=== PATIENT | female | born 1995 | race Caucasian/White ===

== ENCOUNTER 2017-07-22 12:50 | Outpatient (CLI) | payer OTHER, SELFPAY ==
[2017-07-22 13:20] VITALS: BMI 27.3
--- NOTE | 2017-07-22 17:39 | OB.TRI.NOTE ---
History of Present Illness Date of Service: 07/22/17 - seen in office Was patient seen by the physician?: No Reason For Visit: AGATA Date of Service: 07/22/17 Final HUMERA: 07/23/17 Gestational age: 39 Weeks and 6 Days Home Medications Medication Instructions Recorded Vit No.130/Iron/FA 1 each PO DAILY 01/24/17 [ Vitamins] Allergies No Known Allergies Allergy (Verified 01/24/17 06:50) NST - FHR Rate Baby A Baseline: 125 Variability:: Moderate Accelerations:: 15 x 15 Decelerations:: None NST Reactive:: Yes Uterine Activity:: irregular ctxs Impression/Plan A&P: 22yo female with ctxs NST for false labor
== END 2017-07-22 15:10 | disposition home or self-care (01) ==
LOC: WPOUT 13:17 → WP 13:30
PROVIDERS: Family Provider Student in an Organized Health Care Education/Training Program; PCP Student in an Organized Health Care Education/Training Program; Visit Provider Obstetrics & Gynecology
DX: O47.1 False labor at or after 37 completed weeks of gestation (principal); Z3A.39 39 weeks gestation of pregnancy
CPT/HCPCS: 59025; 59050; 99218; G0378

== ENCOUNTER 2017-07-23 02:40 | Inpatient (IN) | payer OTHER, SELFPAY ==
[2017-07-23 02:59] VITALS: BMI 27.1
[2017-07-23] MEDS: Lactated Ringers 1,000 ML 50 ML IV ×5 (03:12→16:40)
[2017-07-23 03:31] LABS: Hematocrit 37.1 % (37-47); Hemoglobin 12.2 g/dl (12.0-15.0); Mean Corp Hgb Conc 32.9 g/gl (32-36); Mean Corpuscular Hgb 27.9 pg (27.0-32.0); Mean Corpuscular Volume 84.7 fL (81-99); Mean Platelet Vol. 11.9 fl (6.2-12.0); Platelet Count 276 K/mm3 (150-450); RBC Distribution Width CV 13.5 % (11.6-14.6); RBC Distribution Width SD 41.1 fl (35.1-43.9); Red Blood Count 4.38 M/mm3 (4.2-5.4); White Blood Count 17.9 K/mm3 (4.4-11.0)
[2017-07-23 03:32] LABS: Scan Indicated on CBC? Y/N NO
[2017-07-23] MEDS: fentaNYL-bupivacaine (epidural) 100 ML BAG EPIDURAL (04:36)
[2017-07-23] MEDS: Ondansetron 4 MG/2 ML Vial IV ×2 (05:12→19:53)
--- NOTE | 2017-07-23 08:07 | PCM.PN.BLA ---
Progress Note Patient comfortable with epidural cvx 7/90/0 AROM clear fluid fhts 125 with mod variability, accels tocos Q2-4 min A&P: expectant management
--- NOTE | 2017-07-23 08:32 | PCM.HP.OB ---
- Problem List (1) Status: Acute Qualifiers: Weeks of gestation: 40 weeks Qualified Code(s): Z3A.40 - 40 weeks gestation of (2) History of anorexia nervosa Status: Acute History Date of Admission: 07/23/17 Final HUMERA: 07/23/17 Final HUMERA Source: LMP Gestational age: 40 Weeks and 0 Days History of this : 22 year old female at 40 weeks by LMP, confirmed by first trimester ultrasound. Presented this am around 0200 with uterine contractions with cervical dilation of 6cm. Denied any LOF, VB, or decreased movement. Admit to L&D. OB HX: Baby with frequent PACs from echo Tobacco use, stopped during first trimester Family history of chromosomal abnormaility-FOB aut born with DiGeorge Syndrome History of Kidney stones, none since 2014 Asthma-childhood and no attacks since 2008. Allergies No Known Allergies Allergy (Verified 01/24/17 06:50) Current Medications Acetaminophen (Tylenol) 325 - 650 mg PO Q4H PRN PRN PRN Reason: PAIN OR FEVER >100.4F Al Hydroxide/Mg Hydroxide (Mylanta Ii) 15 - 30 ml PO Q4H PRN PRN PRN Reason: INDIGESTION Citric Acid/Sodium Citrate (Bicitra) 30 ml PO UD PRN Lactated Ringer's () 1,000 mls @ 50 mls/hr IV .Q20H [facility] Last Admin: 07/23/17 07:23 Dose: 50 mls/hr Penicillin G Potassium/Dextrose (Penicillin G Potassium) 3 mu in 50 mls @ 100 mls/hr IV Q4H [facility] Last Admin: 07/23/17 08:13 Dose: 100 mls/hr Naloxone HCl 4 mg/ Dextrose 504 mls @ 0 mls/hr IV PRN PRN; Protocol PRN Reason: TO MAINTAIN RR>10 Nalbuphine HCl (Nubain) 5 - 10 mg IV Q3H PRN PRN PRN Reason: PAIN (4-10/10) Nalbuphine HCl (Nubain) 5 mg IV Q3H PRN PRN Reason: ITCHING Stop: 07/24/17 04:51 Naloxone HCl (Narcan) 0.2 mg IV Q1M PRN PRN Reason: RR<10 AND PT UNRESPONSIVE Stop: 07/24/17 04:51 Ondansetron HCl (Zofran) 4 mg IV Q8H PRN PRN PRN Reason: NAUSEA Last Admin: 07/23/17 05:12 Dose: 4 mg Promethazine HCl (Phenergan Iv) 6.25 - 12.5 mg IV Q4H PRN PRN; Protocol PRN Reason: IF NAUSEA PERSISTS Sodium Chloride () 5 - 15 ml IV UD DARION Last Admin: 07/23/17 03:39 Dose: Not Given Smoking Status: Former smoker Alcohol: None Drug Use: none Number of Fetus(es): 1 Review of Systems Constitutional: Denies: Chills, Fever, Weight Change Cardiovascular: Denies: Chest Pain, Palpitations Respiratory: Denies: Cough, Shortness of breath at rest, Sputum production Genitourinary: Denies: Dysuria Physical Exam Vitals: Labs: GBS positive RPR negative Rubella Immune HBsAG negative HIV non reactive B positive, antibody screen negative GC/CT negative FHT: 130, moderate variability, accels, no decels, Category 1 TOCO: Every 5-10 minutes, lasting 60-90seconds, palpate moderate General: Alert, Oriented x3, No apparent distress Cardiovascular: Regular rate, Regular Rhythm, No murmurs Lungs: Clear to auscultation, No rhonchi, No wheeze Abdomen: Bowel Sounds Present, Gravid Extremities:: Other - +1 edema BLE Estimated gestational size: Appropriate for gestational size Presentation: Cephalic Cervix Dilation (cm): 7 - Exam by . AROM clear fluid Station: 0 Effacement (%): 90 Assessment/Plan Active and Suspected Problems (Acute) History of anorexia nervosa (Acute) A: 22 year old female at 40 weeks by LMP in active labor Category 1 FHT GBS positive P: 1) Admit to L&D with routine orders 2) Epidural effective for pain management 3) Expectant management at this time 4) collaborative physician. Present on unit and updated on patient status. Yamila Rogers CNM
--- NOTE | 2017-07-23 08:42 | HP.PCM_ITS ---
- Problem List (1) Status: Acute Qualifiers: Weeks of gestation: 40 weeks Qualified Code(s): Z3A.40 - 40 weeks gestation of (2) History of anorexia nervosa Status: Acute History Date of Admission: 07/23/17 Final HUMERA: 07/23/17 Final HUMERA Source: LMP Gestational age: 40 Weeks and 0 Days History of this : 22 year old female at 40 weeks by LMP, confirmed by first trimester ultrasound. Presented this am around 0200 with uterine contractions with cervical dilation of 6cm. Denied any LOF, VB, or decreased movement. Admit to L&D. OB HX: Baby with frequent PACs from echo Tobacco use, stopped during first trimester Family history of chromosomal abnormaility-FOB aut born with DiGeorge Syndrome History of Kidney stones, none since 2014 Asthma-childhood and no attacks since 2008. Allergies No Known Allergies Allergy (Verified 01/24/17 06:50) Current Medications Acetaminophen (Tylenol) 325 - 650 mg PO Q4H PRN PRN PRN Reason: PAIN OR FEVER >100.4F Al Hydroxide/Mg Hydroxide (Mylanta Ii) 15 - 30 ml PO Q4H PRN PRN PRN Reason: INDIGESTION Citric Acid/Sodium Citrate (Bicitra) 30 ml PO UD PRN Lactated Ringer's () 1,000 mls @ 50 mls/hr IV .Q20H [facility] Last Admin: 07/23/17 07:23 Dose: 50 mls/hr Penicillin G Potassium/Dextrose (Penicillin G Potassium) 3 mu in 50 mls @ 100 mls/hr IV Q4H [facility] Last Admin: 07/23/17 08:13 Dose: 100 mls/hr Naloxone HCl 4 mg/ Dextrose 504 mls @ 0 mls/hr IV PRN PRN; Protocol PRN Reason: TO MAINTAIN RR>10 Nalbuphine HCl (Nubain) 5 - 10 mg IV Q3H PRN PRN PRN Reason: PAIN (4-10/10) Nalbuphine HCl (Nubain) 5 mg IV Q3H PRN PRN Reason: ITCHING Stop: 07/24/17 04:51 Naloxone HCl (Narcan) 0.2 mg IV Q1M PRN PRN Reason: RR<10 AND PT UNRESPONSIVE Stop: 07/24/17 04:51 Ondansetron HCl (Zofran) 4 mg IV Q8H PRN PRN PRN Reason: NAUSEA Last Admin: 07/23/17 05:12 Dose: 4 mg Promethazine HCl (Phenergan Iv) 6.25 - 12.5 mg IV Q4H PRN PRN; Protocol PRN Reason: IF NAUSEA PERSISTS Sodium Chloride () 5 - 15 ml IV UD DARION Last Admin: 07/23/17 03:39 Dose: Not Given Smoking Status: Former smoker Alcohol: None Drug Use: none Number of Fetus(es): 1 Review of Systems Constitutional: Denies: Chills, Fever, Weight Change Cardiovascular: Denies: Chest Pain, Palpitations Respiratory: Denies: Cough, Shortness of breath at rest, Sputum production Genitourinary: Denies: Dysuria Physical Exam Vitals: Labs: GBS positive RPR negative Rubella Immune HBsAG negative HIV non reactive B positive, antibody screen negative GC/CT negative FHT: 130, moderate variability, accels, no decels, Category 1 TOCO: Every 5-10 minutes, lasting 60-90seconds, palpate moderate General: Alert, Oriented x3, No apparent distress Cardiovascular: Regular rate, Regular Rhythm, No murmurs Lungs: Clear to auscultation, No rhonchi, No wheeze Abdomen: Bowel Sounds Present, Gravid Extremities:: Other - +1 edema BLE Estimated gestational size: Appropriate for gestational size Presentation: Cephalic Cervix Dilation (cm): 7 - Exam by . AROM clear fluid Station: 0 Effacement (%): 90 Assessment/Plan Active and Suspected Problems (Acute) History of anorexia nervosa (Acute) A: 22 year old female at 40 weeks by LMP in active labor Category 1 FHT GBS positive P: 1) Admit to L&D with routine orders 2) Epidural effective for pain management 3) Expectant management at this time 4) collaborative physician. Present on unit and updated on patient status. Yamila Rogers CNM
[2017-07-23] MEDS: Oxytocin 30 units/NS 500 ml 30 UNITS/500 ML IV.SOLN IV (16:00)
[2017-07-23] MEDS: Acetaminophen 325 MG Tablet 975 MG PO (17:50)
--- NOTE | 2017-07-23 18:08 | PCM.PROGNOTE ---
Patient Problems: Active and Suspected Problems (Acute) History of anorexia nervosa (Acute) Subjective: Pushing since 2:40pm with minimal decent. Epidural effective for pain management. Partner at bedside. Objective: Temp 101 FHT 155, moderate variability, accels, variable decels TOCO: every 2-3 minutes, lasting 60 seconds, strong to plapation Minimal decent per nursing. Upon initial exam baby -2 with caput and minimal decent with pushing. During pushing moving baby and progressed to -1 station and moving head with pushing. Epidural level turned down. - Physical Exam Weight: 163 lb 2.273 oz Body Mass Index (BMI) 27.1 Intake and Output for Last 24 Hours 07/21/17 07/22/17 07/23/17 23:59 23:59 23:59 Intake Total 1820 / 1820 Output Total 400 / 400 Balance 1420 / 1420 Laboratory Tests Past 24 Hrs 07/23/17 07/23/17 03:12 03:12 WBC 17.9 H RBC 4.38 Hgb 12.2 Hct 37.1 MCV 84.7 MCH 27.9 MCHC 32.9 RDW 13.5 RDW Differential 41.1 Plt Count 276 MPV 11.9 Blood Type B POSITIVE Antibody Screen NEGATIVE Medical Necessity - Tobacco Use Smoking Status: Former smoker Assessment/Plan Active and Suspected Problems (Acute) History of anorexia nervosa (Acute) A: Active Labor GBS positive Maternal fever P: 1) Maternal fever of 101. Tylenol PO 2) Discussed patient minimal decent but not making progress with decent. Ok to continue pushing at this time. Pushing since 2:40 3hrs. 3) Consider maternal antibiotics but baseline normal at this time.
--- NOTE | 2017-07-23 18:54 | PCM.PROGNOTE ---
Patient Problems: Active and Suspected Problems (Acute) History of anorexia nervosa (Acute) Subjective: Pushing with epidural. Objective: FHT 200, moderate varibility, accels, Categry 2 TOCO: every 2-3 min lasting 60-90 seconds Pitocin at 2mu's Cervix: complete and 0 station. - Physical Exam Weight: 163 lb 2.273 oz Body Mass Index (BMI) 27.1 Intake and Output for Last 24 Hours 07/21/17 07/22/17 07/23/17 23:59 23:59 23:59 Intake Total 1820 / 1820 Output Total 400 / 400 Balance 1420 / 1420 Laboratory Tests Past 24 Hrs 07/23/17 07/23/17 03:12 03:12 WBC 17.9 H RBC 4.38 Hgb 12.2 Hct 37.1 MCV 84.7 MCH 27.9 MCHC 32.9 RDW 13.5 RDW Differential 41.1 Plt Count 276 MPV 11.9 Blood Type B POSITIVE Antibody Screen NEGATIVE Medical Necessity - Tobacco Use Smoking Status: Former smoker Assessment/Plan Active and Suspected Problems (Acute) History of anorexia nervosa (Acute) A: Active labor, second stage Category 2 FHT, tachycardia P: 1) notified of tachycardia in 200s, decreased pushing effort, with some descent. Consulted to come in for evaluation.
--- NOTE | 2017-07-23 19:15 | PLAC_PTH ---
PATIENT: CHAIM SEAY LOC: [facility] U#:[id number] AGE/SX: 22/F ROOM: WP008 RE07/23/[address]: Dr. Matilda Jonas, MDDOB: 1995 BED: 1 DIS: 07/25/2017 SPEC #: [id number] RECD: 07/23/17 20:13 STATUS: ELIF DEJA #: [id number] ADAM: 07/23/17 19:[address]: Matilda Jonas DEPT: SURGICAL PATHOLOGY RECD BY: Toney Oh ENTERED: 07/26/17 07:34 SP TYPE: PLACENTA OTHR DR: DO Dr. Amador Leone MD Tissues: Placenta, NOS Procedures: Surgery Specimen Level V HEADER OPERATION: Vaginal delivery PRE-OP DIAGNOSIS: Chorioamnionitis TISSUE SUBMITTED: Placenta MICROSCOPIC DIAGNOSIS Placenta: Placental disc - third trimester placenta (657 gm). - Focal areas of infarction and intraparenchymal hemorrhage. - Focal increased intervillous and perivillous fibrin deposition Membranes ? acute chorioamnionitis. Umbilical cord - three blood vessels and mild acute funisitis. SJ:jamilah 07/27/17 MICROSCOPIC DESCRIPTION Slides are reviewed. GROSS DESCRIPTION SPECIMEN: PLACENTA / CLINICAL INFORMATION: A. Weight: 3.693 kg B. Gestational Age: 40 weeks C. Sex: Female PLACENTAL WEIGHT (POST FIXATION): 657 gm PLACENTAL DIMENSIONS: 20 x 19 x 3.5 cm PLACENTAL SHAPE: Usual ovoid PLACENTAL WEIGHT FOR GESTATIONAL AGE: Over 99th percentile MEMBRANES - Present A. Insertion: Marginal B. Site of rupture from edge: 6 cm from edge of placental disc C. Color of membrane: Rivera-burns D. Abnormalities: None UMBILICAL CORD - Present A. Color: Rivera-burns B. Insertion: Paracentral C. Length: 20 cm D. Diameter: 1.8 to 2 cm E. Number of vessels: Three F. Abnormalities: None PLACENTAL DISC - Present A. Color of surface: Rivera-burns B. surface abnormalities: None C. Maternal cotyledons: Intact with minimal tears D. Attached retro placental clot: No clot E. Cut surface: Dark red and spongy F. Lesions: Sections reveal two rivera, indurated areas each measuring 2 cm in greatest dimension. G. Separate clot: Absent SECTIONS SUBMITTED: 1. Membrane roll 2. Cord, maternal end 3. Cord, end 4. Placental disc, and maternal surfaces, lesion 5. Placental disc, and maternal surfaces, lesion 6. Placental disc, and maternal surfaces ANNETTA:jamilah 07/26/17 TC:2 CPT: 86309
[2017-07-23] MEDS: Oxytocin 30 units/NS 500 ml 30 UNITS/500 ML IV.SOLN 334 UNITS IV (19:20)
[2017-07-23] MEDS: Methylergonovine 0.2 MG/ML Ampul IM (19:23)
[2017-07-23] MEDS: Carboprost Tromethamine 250 MCG/ML Ampul IM (19:37)
--- NOTE | 2017-07-23 19:44 | PCM.OB.VAG ---
Vaginal Delivery Maternal Presentation: Active Labor Method of Induction: Pitocin, Amniotomy Amniotic Membrane Rupture Type: Artificial Rupture of Membrane time: 804 Amniotic Fluid Description: Clear Final HUMERA: 07/23/17 Gestational age: 40 Weeks and 0 Days Date of Procedure: 07/23/17 Pre-Operative Diagnosis: term gestation Post-Operative Diagnosis: chorioamnionitis Surgery/ Procedure Performed: Vacuum Assisted Vaginal Delivery Type of Anesthesia: Epidural, Local with 1% lidocaine Description of Procedure: called for evaluation for possible C/S for tachycardia, Chorioamnionitis prolonged second stage. patient evaluated and decision for attempt of vaginal delivery with vacuum assistance. pt and counseled on risks of vacuum assistance for delivery. bladder emptied, vacuum placed and total 3 pulls with 2 pop offs. head delivered, vacuum removed and with good maternal efforts patient delivered fetus. Cord clamped and cut, handed to nursery team. steady bleeding noted. vagina evaulated- no cervical lacerations only 2nd vaginal and 1st vaginal laceration appreciated. Banjo curettage performed, scant tissue removed. Ultrasound confirms absence of retained placenta. During this time Methergine and Hemabate were given. Fundus firm. bleeding slowed. Presentation: Vertex Placental Delivery Description: Spontaneous Placenta Disposition: Sent to Pathology Cord Vessel Description: 3 Vessels Cord Entanglement: None Estimated Blood Loss: 500 Infant A gender: Female (1 minute): 8 (5 minute): 9 Episiotomy Description: None Laceration: Vaginal Extension/lac - 1st degree repaired with 3-0 rapide and second degree repaired with 2-0 vicryl, 1st degree, 2nd degree Medications given after delivery: IV Pitocin, IM Methergin, IM Hemabate
[2017-07-23] MEDS: Oxytocin 30 units/NS 500 ml 30 UNITS/500 ML IV.SOLN 167 UNITS IV (19:50)
--- NOTE | 2017-07-23 20:55 | PCM.PROGNOTE ---
Patient Problems: Active and Suspected Problems (Acute) History of anorexia nervosa (Acute) Subjective: Notified by TAMMY Mcmahon that patient was having difficulty breathing and feeling sluggish. Patient with complaint of feeling some heaviness in chest - Physical Exam General: Alert, Oriented x3, Cooperative HEENT: Atraumatic, PERRLA, EOMI Oral: Moist Mucosa - No tongue swelling Lungs: Clear to auscultation, Normal air movement, No rhonchi, No wheeze Cardiovascular: Regular rate, Regular Rhythm, No murmurs Psych/Mental Status: Flat Affect - Patient with flat affect on admission. Remains the same at this time. Weight: 163 lb 2.273 oz Body Mass Index (BMI) 27.1 Intake and Output for Last 24 Hours 07/21/17 07/22/17 07/23/17 23:59 23:59 23:59 Intake Total 1820 / 1820 Output Total 400 / 400 Balance 1420 / 1420 Laboratory Tests Past 24 Hrs 07/23/17 07/23/17 03:12 03:12 WBC 17.9 H RBC 4.38 Hgb 12.2 Hct 37.1 MCV 84.7 MCH 27.9 MCHC 32.9 RDW 13.5 RDW Differential 41.1 Plt Count 276 MPV 11.9 Blood Type B POSITIVE Antibody Screen NEGATIVE Medical Necessity - Tobacco Use Smoking Status: Former smoker Assessment/Plan Active and Suspected Problems (Acute) History of anorexia nervosa (Acute) A:Status post vaginal delivery with vacuum extraction chest pain P: 1) Consulted regarding patient feeling tongue swelling and chest tightness. VSS, good air movement, RRR, and no other signs of complications. Stable at this time. Order EKG and 25mg IV Benadryl x1.
--- NOTE | 2017-07-23 20:57 | EKG12_ITS ---
Test Reason : CP Blood Pressure : / mmHG Vent. Rate : 077 BPM Atrial Rate : 077 BPM P-R Int : 136 ms QRS Dur : 084 ms QT Int : 386 ms P-R-T Axes : 066 044 022 degrees QTc Int : 436 ms Normal sinus rhythm Normal ECG No previous ECGs available Confirmed by OMER JOHNS, JAKOB ([id number]), senior technical editor EVERETT MCHUGH ([id number] on 07/27/2017 1:37:42 PM Referred By: Confirmed By:JAKOB TELLO MD
[2017-07-23] MEDS: DiphenhydrAMINE 50 MG/ML Syringe 25 MG IV (21:43)
[2017-07-23] MEDS: 0.9% Saline Lock 10 ML Syringe IV (21:49)
[2017-07-24] VITALS (8 sets, daily range): BP systolic 102–122; BP diastolic 55–72; PULSE 68–100; RESP 16–18; TEMP 36.5–38.2; O2SAT 95–98
[2017-07-24] MEDS: Acetaminophen 500 MG Tablet 1000 MG PO (05:05)
--- NOTE | 2017-07-24 08:03 | PCM.PN.OB ---
Patient Problems: Active and Suspected Problems (Acute) History of anorexia nervosa (Acute) Subjective: pt seen at bedside, doing well. pt reports good pain control. denies chills at this time. Bottle feeding. Lochia mild. - Physical Exam General: Alert, Oriented x3 Abdomen: Soft, Non Tender, Non-Distended, - - fundus firm Extremities: No Calf Tenderness Vital Signs Temp Pulse Resp BP Pulse Ox 98.1 F 100 16 122/72 H 98 07/24/17 06:52 07/24/17 04:15 07/24/17 04:15 07/24/17 04:15 07/24/17 04:15 Oxygen Delivery Method Room Air Weight: 74 kg Body Mass Index (BMI) 27.1 Intake and Output for Last 24 Hours 07/22/17 07/23/17 07/24/17 23:59 23:59 23:59 Intake Total 5905 / 5905 Output Total 1200 / 1200 Balance 4705 / 4705 Medical Necessity - Tobacco Use Smoking Status: Former smoker Assessment/Plan Active and Suspected Problems (Acute) History of anorexia nervosa (Acute) PPD#1, doing well 1) had temps overnight- now is afebrile- will monitor and if spikes will order blood cultures and start abx 2) CBC with diff today 3) pain mgmt
--- NOTE | 2017-07-24 08:07 | DCINST_ITS ---
Discharge Diet: No Restrictions Discharge Activity: Return to Normal Activity, May not drive while taking narcotic pain medications., May Shower May resume sexual activity in: 4-6 weeks Additional Activity Instructions:: Nothing in the vagina for 4-6 weeks. You may return to work/school in 6 weeks. Call your doctor if your incision/area has: Continuous Slow Oozing, Sudden Increased Bleeding, Increased Pain/ Swelling, Increased Redness, Foul Smelling Discharge Additional Instructions: If you experience any of the following, contact your healthcare provider. * Bleeding that soaks a pad every hour for 2 hours * Fever 100.4 or higher * Unrelieved incision or abdominal pain * Swelling, redness, discharge or bleeding from your incision or episiotomy site * Your incision begins to separate * Problems urinating (including inability to urinate or burning while urinating) . * Visual changes * Severe headache * Flu-like symptoms * Pain or redness in one of both of your breasts * Pain, warmth, tenderness or swelling in your legs, especially the calf area * Frequent nausea and vomiting * Symptoms of depression or anxiety If you experience any of the following, call 911 or go to the nearest Emergency Room. * Chest pain * Problems breathing * Seizure activity * Partial or complete paralysis of a body part, slurred speech, weakness or drooping of the face, or a sudden inability to walk or hold your balance Allergies/Adverse Reactions: Allergies No Known Allergies Allergy (Verified 01/24/17 06:50) Medications to take at Discharge Vit No.130/Iron/FA [ Tablet] 1 each PO DAILY 01/24/17 Naproxen [Naprosyn] 250 - 500 mg PO Q8H PRN PRN #60 tab 07/24/17 The following prescriptions were given: Naproxen [Naprosyn] 250 - 500 mg PO Q8H PRN PRN #60 tab PRN Reason: Mild Pain (-07/03) When: Call to make an appointment with your doctor in 6 weeks. If you had elevated Blood Pressure or 4th degree laceration you will need to be seen in 2 weeks. Primary Care Physician: Sudeep Champagne DO [Primary Care Provider] -
[2017-07-24] MEDS: Naproxen 250 MG Tablet PO ×2 (09:11→21:28)
[2017-07-24 09:19] LABS: Absolute Lymphocyte Count 2.66 X10^3/ul (0.83-4.51); Absolute Neutrophil Count 21.3 X10^3/uL (2.0-7.7); Basophil# 0.04 X10^3/uL; Basophil% 0.2 % (0-1); Eosinophil# 0.07 X10^3/uL; Eosinophils% 0.3 % (0-5); Hematocrit 32.6 % (37-47); Hemoglobin 10.7 g/dl (12.0-15.0); Lymphocyte # 2.66 X10^3/ul (4.0); Lymphocyte % 10.1 % (19-41); Mean Corp Hgb Conc 32.8 g/gl (32-36); Mean Corpuscular Hgb 28.1 pg (27.0-32.0); Mean Corpuscular Volume 85.6 fL (81-99); Mean Platelet Vol. 11.9 fl (6.2-12.0); Monocyte# 2.05 X10^3/uL; Monocyte% 7.8 % (0-10); Neutrophil # 21.27 X10^3/uL (2.7-7.7); Neutrophil % 81.1 % (47-70); Platelet Count 235 K/mm3 (150-450); RBC Distribution Width CV 13.7 % (11.6-14.6); RBC Distribution Width SD 41.3 fl (35.1-43.9); Red Blood Count 3.81 M/mm3 (4.2-5.4); White Blood Count 26.2 K/mm3 (4.4-11.0)
[2017-07-24 09:20] LABS: Differential Indicated SCAN CRITERIA MET; POSITIVE COUNT NO; POSITIVE DIFFERENTIAL YES; POSITIVE MORPHOLOGY NO
[2017-07-24 09:42] LABS: Differential Comment SCANNED
[2017-07-25 03:30] VITALS: BP 95/60; PULSE 70; RESP 16; TEMP 36.6; O2SAT 96
--- NOTE | 2017-07-25 07:02 | PCM.PN.OB ---
Patient Problems: Active and Suspected Problems (Acute) History of anorexia nervosa (Acute) Subjective: pt seen at bedside, doing well. pt reports good pain control. Lochia mild. No chills or fevers. bottle feeding. - Physical Exam General: Alert, Oriented x3 Abdomen: Soft, Non Tender, Non-Distended, - - fundus firm Extremities: No Calf Tenderness Vital Signs Temp Pulse Resp BP Pulse Ox 97.8 F 70 16 95/60 96 07/25/17 03:30 07/25/17 03:30 07/25/17 03:30 07/25/17 03:30 07/25/17 03:30 Oxygen Delivery Method Room Air Weight: 74 kg Body Mass Index (BMI) 27.1 Intake and Output for Last 24 Hours 07/23/17 07/24/17 07/25/17 23:59 23:59 23:59 Intake Total 5905 / 5905 Output Total 1200 / 1200 Balance 4705 / 4705 Laboratory Tests Past 24 Hrs 07/24/17 08:55 WBC 26.2 H RBC 3.81 L Hgb 10.7 L Hct 32.6 L MCV 85.6 MCH 28.1 MCHC 32.8 RDW 13.7 RDW Differential 41.3 Plt Count 235 MPV 11.9 Immature Gran % (Auto) 0.500 Neut % (Auto) 81.1 H Lymph % (Auto) 10.1 L [place] % (Auto) 7.8 Eos % (Auto) 0.3 Baso % (Auto) 0.2 Absolute Neuts (auto) 21.3 H Absolute Lymphs (auto) 2.66 Total Counted Not Reportable Differential Comment SCANNED Medical Necessity - Tobacco Use Smoking Status: Former smoker Assessment/Plan Active and Suspected Problems (Acute) History of anorexia nervosa (Acute)
[2017-07-25 07:55] VITALS: BP 104/59; PULSE 66; RESP 18; TEMP 36.3; O2SAT 97
[2017-07-25 12:47] LABS: Pathology Specimen OB SEE PATHOLOGY REPORT
[2017-07-25 14:45] VITALS: BP 116/60; PULSE 73; RESP 18; TEMP 36.7; O2SAT 98
--- NOTE | 2017-07-26 14:55 | CASEMGMT ---
Social Work - PHQ9 follow up Labor and Delivery Unit Received notice that patient with a positive PHQ9 score of 7, indicating not at all to thoughts of being better off or thoughts of hurting self in the last two weeks. Patient was discharged on Wednesday07-25-17 before able to be seen by social work or behavioral health departments. Chart reviewed. Noted in the medical record that patient is G2, P0 to 1 after delivering Yeison Villatoro. Uncertain was to gestational age of first loss, whether this was a first or second trimester loss, as social services aide saw a 9 week loss and an 18 week loss documented in patient's record. Noted in record that patient with history of diagnosis of anorexia. Noted that father of baby was present during hospital stay and supportive. Attempted to reach patient this date at [phone]. Voice mail received so left a message to call this bond underwriter back, leaving this bond underwriter's name and number. Plan: Review resources for first time parents, current support system, patient's reported depressive symptoms, and mental health support options. -ANGELA Robins, RADIOLOGY PRACTITIONER ASSISTANT
--- NOTE | 2017-07-27 15:47 | CASEMGMT ---
Social Work Labor and Delivery Unit Patient/mother of baby (MOB) did return this senior grant writer's call from 07-26-17 and left this senior grant writer a message. Called MOB today. MOB answered the phone. Educated MOB to reason for call and role. MOB agreeable to talk with social work at this time. MOB reports to feel a france with the baby. MOB reports some of the depressive symptoms have been better, not as intense. Upon addressing the PHQ9, MOB reports depressive symptoms were more of MOB feeling emotionless not having as much of a reaction to things as MOB thought should be having. Such as when MOB returned home and saw MOB's 4 dogs, MOB did not experience, in MOB's perception, intense reactions to seeing the dogs after being in the hospital for a few days. MOB reports to now be having more emotion since returning home. MOB reports motivation has been up and down, but was able to get some sleep yesterday so feeling better today. MOB reports appetite is on MOB's mind, but trying to be mindful of this. MOB reports MOB's mom helped MOB get through eating disorder in the past, so knows has access to the same support at this time as well. After social work inquiry as to whether baby born this admission was MOB's first child, MOB shared that did have a previous loss at 18 weeks. When social work assistant commented that this was a second trimester loss, MOB reported the loss was between 12-18 weeks. Educated MOB there is a local grief support group for parents with loss, should MOB ever be interested in support for this part of MOB's life. MOB reports MOB's mother, MOB's fiance/father of baby Avinash Villatoro, and another good friend are supportive and helpful to MOB. MOB denies any thoughts of suicide or self harm. MOB reports does feel a france with the baby and was able to get out yesterday and take baby to the doctors. MOB denies need or desire to have a mental health referral at this time, but reports that symptoms intensify would consider seeking out professional help. MOB voiced agreement to have social work assistant send information in the mail on mental health treatment options. During conversation MOB voiced that does have questions about finances, that copays are quite expensive and worried as to how to pay for bills. Educated MOB to Medicaid, applying for this to see if can supplement cost of medical bills. Suggested MOB call the numbers listed on the bills received,and to talk to respective financial departments to see if there are applications to apply for extra help, and if not then set up payment plans. MOB voiced agreement to look into options. Discussed WIC, to which MOB voiced interest in applying for. sheet metal worker apprentice agreed to send MOB some information in the mail which may be helpful. MOB agreed. Educated MOB to Help Me Grow. MOB stated verbal consent for referral. Verified MOB's address to send packet of information. Interventions: Help Me Grow referral submitted via the [facility]'s secure web based referral system Packet placed in mail, which included: Medicaid application, WIC applications, General resource list for [facility], Handouts on topics/programs pertinent to new parents, depression packet, including online supports, Local mental health support programs Plan: MOB is at home, reports to be doing well overall and expressed receptivity to having social work send pertinent information to women. [facility] referral in place. -ANGELA Robins, PRICING LEAD
== END 2017-07-25 15:30 | disposition home or self-care (01) | DRG 767 ==
PROVIDERS: Advanced Practice Midwife; Admitting Provider Obstetrics & Gynecology; Family Provider Student in an Organized Health Care Education/Training Program; PCP Student in an Organized Health Care Education/Training Program; Visit Provider Obstetrics & Gynecology
DX: O76 Abnormality in fetal heart rate and rhythm complicating labor and delivery (principal); O41.1230 Chorioamnionitis, third trimester, not applicable or unspecified; O72.2 Delayed and secondary postpartum hemorrhage; O63.1 Prolonged second stage (of labor); O75.2 Pyrexia during labor, not elsewhere classified; O70.1 Second degree perineal laceration during delivery; O99.824 Streptococcus B carrier state complicating childbirth; O99.331 Smoking (tobacco) complicating pregnancy, first trimester; O99.89 Other specified diseases and conditions complicating pregnancy, childbirth and the puerperium; R07.89 Other chest pain; R22.0 Localized swelling, mass and lump, head; Z37.0 Single live birth; Z3A.40 40 weeks gestation of pregnancy; Z86.59 Personal history of other mental and behavioral disorders
CPT/HCPCS: 59025; 59050; 76815; 85025; 85027; 86850; 86900; 88307; 93005; 99218; J7120; A4216; G0378; J2405

== ENCOUNTER 2019-03-26 21:31 | Emergency (ER) | payer OTHER, SELFPAY ==
[2019-03-26 21:31] VITALS: BP 110/65; PULSE 90; RESP 14; TEMP 36.7; O2SAT 98; BMI 26.9
--- NOTE | 2019-03-26 22:12 | ED.DCSUM_ITS ---
- ER Visit Summary Date of Service: 03/26/19 Chief Complaint: [Right ear pain] History of Present Illness: The patient is a 23 F [presents to the emergency department complaint of right ear pain that started about a month ago. Patient's had several visits to walk-in clinics for this and has been on amoxici llin as well as Claritin. Patient complains of ringing in the ear and dizziness with turning her head and trying to stand and walk. Patient also is 9 weeks and she is G3, P1. Patient denies any trauma to her ear. Denies any fevers. Patient has no medical history otherwise. Physical Examination: [HEENT-PERRLA, EOMI. Cranial nerves II through XII grossly intact. Left TM clear. Right TM-the tympanic membrane appears to be extremely retracted and there is evidence of erythema and dried blood on the tympanic membrane. Difficult to visualize the bones of the middle ear.. Patient has no pain with traction on pinna. She has no tenderness over the mastoid.. Mucous membranes moist. No adenopathy. Is nonerythematous. No exudates. Cardiovascular-regular rate and rhythm without murmur or ectopy Lungs-clear to auscultation, chest wall stable without crepitus or subcu emphysema Abdomen-normoactive bowel sounds, soft, nontender, no rebound or rigidity, no peritoneal signs. Extremities-intact ?4, normal range of motion, normal pulses, atraumatic] Test Results: [None indicated] Emergency Department Course and Treatment: [She will be started on Zithromax and Antivert. Patient will require evaluation by ENT.] Treatment Plan: [To follow-up with ENT and I will start her on Zithromax and Antivert.] Disposition: [Discharged home in stable condition] Impression: [Right otitis media with suspected eardrum perforation Decreased hearing right ear] This note was generated with [employer] dictation software. It may contain incorrect words, spelling, and punctuation that were not noted in review of the chart prior to signing ED Disposition - Plan for ED Patient: Referrals: Sudeep Champagne DO [Primary Care Provider] -
--- NOTE | 2019-03-26 22:16 | ED.DEP ---
ED Disposition - Plan for ED Patient: Instructions: RUPTURED TM, Infected (Adult) Prescriptions: Meclizine HCl [Antivert] 25 mg PO 4X/DAY PRN PRN #20 tab PRN Reason: Dizziness Prescription Printed Azithromycin [Zithromax] 250 mg PO DAILY #4 tab Prescription Printed Referrals: Sudeep Champagne DO [Primary Care Provider] - Benedict Avilez MD [STAFF PHYSICIAN] - 1-2 Days if not improving
[2019-03-26] MEDS: Azithromycin 250 MG Tablet 500 MG PO (22:23)
[2019-03-26 22:26] VITALS: BP 112/69; PULSE 81; RESP 18; O2SAT 100
--- NOTE | 2019-03-26 22:26 | ED.RN ---
THIS NURSE REVIEWED D/C INSTRUCTIONS WITH PT. PT VERBALIZED UNDERSTANDING OF INSTRUCTIONS. PT DENIES FURTHER NEEDS OR QUESTIONS AT THIS TIME. PT WAITING IN THE ROOM FOR MEDS TO BEDS
== END 2019-03-26 22:27 | disposition home or self-care (01) ==
LOC: ED 22:11
PROVIDERS: Emergency Provider Emergency Medicine; Family Provider Student in an Organized Health Care Education/Training Program; PCP Student in an Organized Health Care Education/Training Program
DX: O99.89 Other specified diseases and conditions complicating pregnancy, childbirth and the puerperium (principal); H66.91 Otitis media, unspecified, right ear; Z3A.09 9 weeks gestation of pregnancy; H91.91 Unspecified hearing loss, right ear
CPT/HCPCS: 99283

== ENCOUNTER 2019-10-27 04:35 | Inpatient (IN) | payer OTHER, SELFPAY ==
[2019-10-27] VITALS (46 sets, daily range): BP systolic 97–134; BP diastolic 51–77; PULSE 66–104; RESP 16–18; TEMP 36.3–37.1; O2SAT 90–100; BMI 29.0
--- NOTE | 2019-10-27 04:17 | HP.PCM_ITS ---
- Problem List (1) 39 weeks gestation of Status: Acute (2) Multiparous Status: Acute (3) Uterine contractions Status: Acute (4) Status: Acute Qualifiers: (5) History of anorexia nervosa Status: Acute History Date of Admission: 07/23/17 Final HUMERA: 11/01/19 Final HUMERA Source: LMP Gestational age: 39 Weeks and 2 Days History of this : This is a 24 year-old, G 3, P 1011, at 39 weeks gestational age who presents with ctx's. No vb, lof. Good FM. Allergies No Known Allergies Allergy (Verified 10/27/19 03:41) Home Medications: Home Medications Vit No.130/Iron/Folic [ Tablet] 1 each PO DAILY 01/24/17 Smoking Status: Never smoker Number of Fetus(es): 1 NST - FHR Rate Baby A FHR Category:: Category I History Past Pregnancies: Past Pregnancies Delivery Date Name GA/ Weeks Outcome Route Wt Infant Sex Labor Length Anesthesia Delivery Location Provider FOB Labs: See [facility] record Expected Delivery Method: Spontaneous Vaginal Review of Systems Gynecological: Denies: Vaginal bleeding Physical Exam Vitals: Vital Signs Temp Pulse BP 98.1 F 87 134/74 H 10/27/19 03:30 10/27/19 02:16 10/27/19 02:16 General: Alert, No apparent distress HEENT: Atraumatic Abdomen: Soft, Non Tender, Gravid Extremities:: No edema Neurological: Neuro grossly intact GEOGRAPHIC INFORMATION SYSTEMS MANAGER: Normal external genitalia Estimated gestational size: Appropriate for gestational size Presentation: Cephalic Cervix Dilation (cm): 4 Assessment/Plan All Active Problems (Acute) History of anorexia nervosa (Acute) 39 weeks gestation of (Acute) Multiparous (Acute) Uterine contractions (Acute) This is a 24 year-old, G 3, P 1011, at 39 weeks gestational age who presents with contractions. - Admit for labor management - Routine intrapartum care - GBS neg - Pt very anxious regarding delivery process and desires epidural. Will AROM after epidural - Pt was pushing for over 4 hrs with first baby, vacuum assisted delivery, ch orio, and uterine atony - EFW estimated to be <4500g and pelvis adequate. Anticipate vaginal delivery
[2019-10-27] MEDS: Lactated Ringers 1,000 ML 50 ML IV (04:50)
[2019-10-27] MEDS: Lactated Ringers 500 ML 999 ML IV ×2 (04:51→09:48)
[2019-10-27 05:13] LABS: Absolute Lymphocyte Count 2.39 X10^3/uL (0.83-4.51); Absolute Neutrophil Count 10.2 X10^3/uL (2.0-7.7); Basophil# 0.05 X10^3/uL; Basophil% 0.4 % (0-1); Eosinophil# 0.05 X10^3/uL; Eosinophils% 0.4 % (0-5); Hematocrit 34.9 % (37-47); Hemoglobin 10.7 g/dL (12.0-15.0); Lymphocyte # 2.39 X10^3/ul (4.0); Lymphocyte % 17.2 % (19-41); Mean Corp Hgb Conc 30.7 g/dL (32-36); Mean Corpuscular Hgb 26.9 pg (27.0-32.0); Mean Corpuscular Volume 87.7 fL (81-99); Mean Platelet Vol. 12.2 fl (6.2-12.0); Monocyte# 1.06 X10^3/uL; Monocyte% 7.6 % (0-10); NRBC Flagged by Analyzer 0 % (0-5); Neutrophil # 10.16 X10^3/uL (2.7-7.7); Neutrophil % 73.2 % (47-70); Platelet Count 227 K/mm3 (150-450); RBC Distribution Width CV 14.1 % (11.6-14.6); RBC Distribution Width SD 44.5 fl (35.1-43.9); Red Blood Count 3.98 M/mm3 (4.2-5.4); White Blood Count 13.9 K/mm3 (4.4-11.0)
[2019-10-27] MEDS: fentaNYL-bupivacaine (epidural) 100 ML BAG EPIDURAL (06:00)
[2019-10-27] MEDS: Oxytocin 30 units/NS 500 ml 30 UNITS/500 ML IV.SOLN IV (08:30)
--- NOTE | 2019-10-27 09:19 | PCM.PN.BLA ---
Progress Note patient seen at bedside, resting comforably with epidural in place. VE: /-1 AROM clear. continue pitocin. Intermittent variables, REactive with moderate variability. STROKE Vital Signs/Narrative: Vital Signs Temp Pulse BP Pulse Ox 10/27/19 09:01 92 101/51 L 10/27/19 09:00 98.4 F 99 10/27/19 08:11 98.3 F 86 118/59 L 99 10/27/19 07:15 85 119/60 10/27/19 07:13 98.4 F 10/27/19 06:38 82 107/58 L 10/27/19 06:37 98 10/27/19 06:33 75 114/56 L 10/27/19 06:32 98 10/27/19 06:29 86 124/53 H 10/27/19 06:27 80 99 10/27/19 06:24 82 116/61 10/27/19 06:22 87 99 10/27/19 06:19 92 122/58 H 10/27/19 06:17 92 99 10/27/19 06:15 93 131/62 H 10/27/19 06:12 87 99 10/27/19 06:09 80 116/57 L 10/27/19 06:03 96 101/53 L 99 10/27/19 05:58 87 97/56 L 98 10/27/19 05:53 88 113/62 99 10/27/19 05:48 101 H 118/77 99 10/27/19 05:46 98.5 F 10/27/19 05:43 104 H 100
[2019-10-27] MEDS: Oxytocin 30 units/NS 500 ml 30 UNITS/500 ML IV.SOLN 334 UNITS IV (11:01)
--- NOTE | 2019-10-27 11:15 | OP.PCM_ITS ---
Vaginal Delivery Maternal Presentation: Active Labor Amniotic Membrane Rupture Type: Artificial Amniotic Fluid Description: Clear Final HUMERA: 11/01/19 Gestational age: 39 Weeks and 2 Days Date of Procedure: 10/27/19 Pre-Operative Diagnosis: term gestation, Active labor Post-Operative Diagnosis: same, live male infant Surgery/ Procedure Performed: Spontaneous Vaginal Delivery Type of Anesthesia: Epidural Description of Procedure: Delivery of the head. Loose nuchal appreciated. Nuchal cord was reduced prior to delivery. Gentle downward traction and good maternal efforts delivered a vigorous male . Infant was placed on the mother's chest. Delayed cord clamping was performed. Second-degree perineal laceration was repaired using 2- 0 Vicryl and a 3-0 repeat. Placenta delivered without complication and intact. Presentation: Vertex Placental Delivery Description: Spontaneous Placenta Disposition: [facility] Cord Vessel Description: 3 Vessels Nuchal Cord Compression: With compression Cord Entanglement: Around neck x 1, loose Drain: Elder to straight drain Estimated Blood Loss: 200 Infant A gender: Male (1 minute): 8 (5 minute): 9 Episiotomy Description: None Laceration: Perineal Extension/lac, 2nd degree Medications given after delivery: IV Pitocin Complications: None
[2019-10-27] MEDS: Ibuprofen 600 MG Tablet PO ×2 (13:18→23:59)
[2019-10-27] MEDS: 0.9% Saline Lock 10 ML Syringe IV (14:05)
--- NOTE | 2019-10-27 16:30 | CASEMGMT ---
Social Work Brief Assessment - Labor and Delivery Unit Refer documentation below for further details. Date of Referral/Notification: 10/27/2019 Time of Referral: 16:00 Referred By: Nursing Reason for Referral: Triggered by PHQ9 score of 17 Date of Intervention: 10/27/2019 Time of Intervention: 16:30 Informant: Medical record and mother of baby (MOB) Assessment: Met with MOB in room. Introduced role and reason for referral. MOB triggered for consult by social work due to PHQ9. MOB discussed history of anger issues when in 3rd and 4th grade and states followed with a counselor through school. MOB reports while in high school battled anorexia and worked with counseling through the [facility]. MOB states over the last few weeks noticed a change in her mood. MOB reports is normally ?very OCD? with cleaning and organizing of her home. MOB reports ?I like routine.? MOB reports change in mental health since COVID-19. MOB denies any suicidal ideation, plan or intent. MOB reports to be bonding well with baby boy, Rip. MOB reports has had an outlet through talking and visiting with her mother and father. Discussed options for counseling. MOB denies need for counseling at this time and states plan to discuss with doctor at check-up. MOB provided with list of local counseling agencies if needed. Reviewed signs and symptoms of PPD and provided MOB with resources. Discussed assessment with MOB?s nurse who voiced no further concerns at this time. Plan: Home with resources provided. MOB reports good support from family and declines counseling at this time. No further needs requested or indicated. -Isabel Barry, PUBLIC WELFARE WORKER, FORMULA WEIGHER
[2019-10-27] MEDS: Acetaminophen 500 MG Tablet 1000 MG PO (18:36)
[2019-10-28] VITALS: BP 110/58; PULSE 66; RESP 18; TEMP 36.6
[2019-10-28 07:38] VITALS: BP 104/59; PULSE 67; RESP 16; TEMP 36.3; O2SAT 98
[2019-10-28] MEDS: Acetaminophen 500 MG Tablet 1000 MG PO (11:10)
--- NOTE | 2019-10-28 11:38 | PCM.PN.OB ---
Patient Problems: Active and Suspected Problems 39 weeks gestation of (Acute) Multiparous (Acute) Uterine contractions (Acute) Subjective: Doing well per patient and nursing. Ambulating and taking PO without difficulty. Voiding and passing flatus. . Pain controlled. Planning D/C home today. - Physical Exam Vitals/I&O's: Vital Signs Temp Pulse Resp BP Pulse Ox 97.4 F L 67 16 104/59 L 98 10/28/19 07:38 10/28/19 07:38 10/28/19 07:38 10/28/19 07:38 10/28/19 07:38 Oxygen Delivery Method Room Air Weight: 174 lb 6.4 oz Body Mass Index (BMI) 29.0 Intake and Output for Last 24 Hours 10/26/19 10/27/19 10/28/19 23:59 23:59 23:59 Intake Total 2604.34 / 2604.34 Output Total 2400 / 2400 Balance 204.34 / 204.34 General: Alert, Oriented x3, Cooperative HEENT: Atraumatic, Normocephalic Neck: Trachea Midline Lungs: Clear to auscultation, Normal air movement, No rhonchi, No wheeze Cardiovascular: Regular rate, Regular Rhythm, No murmurs Abdomen: Bowel Sounds Present - Fundus firm 2 below U. Extremities: No edema Psych/Mental Status: Normal Affect, Appropriate Current Medications Acetaminophen (Tylenol) 1,000 mg PO Q8H PRN PRN PRN Reason: Pain Score 1-3/10 Last Admin: 10/28/19 11:10 Dose: 1,000 mg Documented by: Bisacodyl (Dulcolax) 10 mg RECTAL UD PRN PRN Reason: If no BM Dibucaine (Dibucaine) 1 applic TOPICAL TID PRN PRN; Protocol PRN Reason: Discomfort Hydrocortisone (Hytone) 1 applic TOPICAL TID PRN PRN; Protocol PRN Reason: Discomfort Ibuprofen (Motrin) 600 mg PO Q6H PRN PRN PRN Reason: Pain Score 1-3/10 Last Admin: 10/27/19 23:59 Dose: 600 mg Documented by: Methylergonovine Maleate (Methergine) 0.2 mg IM X1 PRN PRN Reason: Excess bleeding/uterine atony Ondansetron HCl (Zofran) 4 mg IV Q4H PRN PRN PRN Reason: Nausea Oxycodone HCl (Oxyir) 5 - 10 mg PO Q4H PRN PRN PRN Reason: Pain Score 4-10/10 Senna/Docusate Sodium (Senokot-S, Vera-Colace) 1 - 2 tablet PO DAILY PRN PRN PRN Reason: Constipation Simethicone (Mylicon) 80 mg PO PCHS PRN PRN Reason: Indigestion/Stomach pain Sodium Chloride () 5 - 15 ml IV UD PRN PRN Reason: SALINE FLUSH Last Admin: 10/27/19 14:05 Dose: 10 ml Documented by: Medical Necessity - Tobacco Use Smoking Status: Former smoker Assessment/Plan All Active Problems (Acute) History of anorexia nervosa (Acute) 39 weeks gestation of (Acute) Multiparous (Acute) Uterine contractions (Acute) A:PPD #1 P: 1) Routine care 2) Bottle feeding with formula 3) Vitals stable 4) pain controlled, will use OTC pain medication 5) D/C home today 6) Follow up in 2 weeks and 6 weeks
--- NOTE | 2019-10-28 11:41 | DCINST_ITS ---
Discharge Diet: No Restrictions Discharge Activity: Return to Normal Activity, May not drive while taking narcotic pain medications., May Shower, May Take a Tub Bath May resume sexual activity in: 4-6 weeks Weight Bearing Status: Full weight bearing Additional Activity Instructions:: Nothing in the vagina for 4-6 weeks. You may return to work/school in 6 weeks. Call your doctor if your incision/area has: Continuous Slow Oozing, Sudden Increased Bleeding, Increased Pain/ Swelling, Increased Redness, Foul Smelling Discharge Call your doctor if you observe: Fever of 101 or Higher, Inability to urinate, Inability to have a bowel movement, Using more than one pad per hour, Shortness of breath, Dizziness, Chest pain, Increased palpitations (irregular heartbeat), Calf discomfort, Uncontrolled pain Additional Instructions: If you experience any of the following, contact your healthcare provider. * Bleeding that soaks a pad every hour for 2 hours * Fever 100.4 or higher * Unrelieved incision or abdominal pain * Swelling, redness, discharge or bleeding from your incision or episiotomy site * Your incision begins to separate * Problems urinating (including inability to urinate or burning while urinating). * Visual changes * Severe headache * Flu-like symptoms * Pain or redness in one of both of your breasts * Pain, warmth, tenderness or swelling in your legs, especially the calf area * Frequent nausea and vomiting * Symptoms of depression or anxiety If you experience any of the following, call 911 or go to the nearest Emergency Room. * Chest pain * Problems breathing * Seizure activity * Partial or complete paralysis of a body part, slurred speech, weakness or drooping of the face, or a sudden inability to walk or hold your balance Allergies/Adverse Reactions: Allergies No Known Allergies Allergy (Verified 10/27/19 03:41) Medications to take at Discharge Vit No.130/Iron/Folic [ Tablet] 1 each PO DAILY 01/24/17 Please Follow Up With: Matilda Jonas MD When: Call to make an appointment with your doctor in 2 weeks for virtual visit and 6 weeks. Primary Care Physician: Sudeep Champagne DO [Primary Care Provider] - Test Results: Test results from this visit will be discussed in further detail at your follow- up appointment, if applicable.
[2019-10-28 13:34] VITALS: BP 120/75; PULSE 78; RESP 16; TEMP 36.6; O2SAT 97
== END 2019-10-28 14:00 | disposition home or self-care (01) | DRG 807 ==
LOC: WPOUT 04:38 → WP 04:38
PROVIDERS: Admitting Provider Obstetrics & Gynecology; PCP Student in an Organized Health Care Education/Training Program; Visit Provider Obstetrics & Gynecology
DX: O69.1XX0 Labor and delivery complicated by cord around neck, with compression, not applicable or unspecified (principal); Z37.0 Single live birth; O70.1 Second degree perineal laceration during delivery; Z3A.39 39 weeks gestation of pregnancy; Z87.891 Personal history of nicotine dependence; Z87.59 Personal history of other complications of pregnancy, childbirth and the puerperium
CPT/HCPCS: 59025; 59050; 85025; 86850; 86900; 86901; 87635; 99218; G2023; J7120; A4216; G0378; U0003